=== PATIENT | female | born 1995 | race Caucasian/White ===

== ENCOUNTER 2019-10-19 13:28 | Inpatient (IN) | payer OTHER ==
[2019-10-19] VITALS (11 sets, daily range): BP systolic 128–172; BP diastolic 63–87
[~2019-10-19] VITALS: Ht 165.1 cm; Wt 91.8 kg
[2019-10-19] MEDS ORDERED: TUMS750C5 PO (13:52)
[2019-10-19] MEDS ORDERED: PREN29TA4 PO (13:52)
[2019-10-19 15:20] LABS: BASO % 0.2 % (0.0-1.0); EOS % 0.3 % (0.0-3.0); HEMATOCRIT 37.3 % (36.0-47.0); LYMPH # 1.9 10^3/uL (1.5-5.0); LYMPH % 20.7 % (24.0-44.0); MEAN CORPUSCULAR HEMOGLOBIN 27.6 pg (27.0-33.0); MEAN CORPUSCULAR HGB CONC 32.2 g/dl (32.0-36.5); MEAN CORPUSCULAR VOLUME 85.9 fl (80.0-96.0); MONO # 0.7 10^3/uL (0.0-0.8); MONO % 7.7 % (0.0-5.0); NEUTROPHILS # 6.4 10^3/uL (1.5-8.5); NEUTROPHILS % 70.3 % (36.0-66.0); PLATELET COUNT, AUTOMATED 191 10^3/uL (150-450); RED BLOOD COUNT 4.34 10^6/uL (4.00-5.40); WHITE BLOOD COUNT 9.1 10^3/uL (4.0-10.0)
[2019-10-19 15:46] LABS: ALT/SGPT 30 U/L (12-78); BILIRUBIN,TOTAL 0.3 MG/DL (0.2-1.0); CREATININE FOR GFR 0.66 MG/DL (0.55-1.30); GLOMERULAR FILTRATION RATE > 60.0 (>60); LDH LACTATE DEHYDROGENASE 256 U/L (84-246); URIC ACID 5.4 MG/DL (2.6-6.0)
[2019-10-19] MEDS ORDERED: LACTATED RINGER'S 1000 ML IV STA (15:51)
[2019-10-19] MEDS ORDERED: miSOPROStol 50 MCG 1/2 TAB (S0191) SL ONE (16:00)
[2019-10-19 16:04] LABS: AMORPHOUS SEDIMENT SMALL (NEGATIVE); APPEARANCE, URINE CLOUDY (CLEAR); BACTERIA, URINE AUTO 1+ (NEGATIVE); BILIRUBIN, URINE AUTO NEGATIVE (NEGATIVE); BLOOD, URINE BLOOD NEGATIVE (NEGATIVE); COLOR, URINE YELLOW (YELLOW); GLUCOSE, URINE (UA) AUTO NEGATIVE (NEGATIVE); KETONE, URINE AUTO NEGATIVE (NEGATIVE); LEUKOCYTE ESTERASE, URINE AUTO NEGATIVE (NEGATIVE); MUCUS, URINE SMALL (NEGATIVE); NITRITE, URINE AUTO NEGATIVE (NEGATIVE); PROTEIN, URINE AUTO NEGATIVE (NEGATIVE); RBC, URINE AUTO 4 /HPF (0-3); SPECIFIC GRAVITY URINE AUTO 1.013 (1.002-1.035); SQUAMOUS EPITHELIAL CELL UR AU 0 /HPF (0-6); UROBILINOGEN, URINE AUTO 0.2 mg/dL (0.0-2.0); WBC, URINE AUTO 14 /HPF (0-3)
--- NOTE | 2019-10-19 16:11 | HPEPDOC ---
Obstetrical History & Physical General Date of Admission Oct 19, 2019 at 13:28 History of Present Illness Mitchell is a 24yo at 38+0wks gestation, EDC [id number] by LMP of [id number]. She presents to LND for scheduled IOL d/t CHTN (not on meds). She reports +FM, denies LOF/VB/CTX. She denies BISWAS/visual disturbances/RUQ pain. Her is complicated by CHTN and excessive weight gain. GBS Negative, Blood Type A Positive Chief Complaint: Induction of labor Information Provided By: Patient Age: 24 : 2 Term: 0 Pre-term: 0 Abortions: 1 Livin Care Care: Good Care Number of Visits: 10 Dating Final EDC: Nov 02, 2019 Final EDC for Daily Update: Nov 02, 2019 Final EDC by: LMP Antepartum Course Height (inches): 65.5 Pre- weight (lbs.): 149 Admission Weight (lbs.): 206 Change in Weight (lbs.): 57 Past Medical History Past Obstetrical History : Past Obstetrical History: Multigravida [employer] History: Spontaneous Past Medical History Medical History CHTN Surgical History: Other (Left Knee scope) Family History Significant Family History: No pertinent family hx Social History Marital Status: Family situation: Spouse/partner home Psychosocial History: No pertinent psych hx * Smoker: non-smoker Alcohol: Denies Drugs: denies Imunizations Tdap status: current Influenza Status: current Allergies Coded Allergies: amoxicillin (Verified Allergy, Severe, anaphlyaxis,rash, 10/19/19) Sulfa (Sulfonamide Antibiotics) (Verified Allergy, Intermediate, hives, 10/19/19) Medications Scheduled Calcium Carbonate (Tums) 300 Mg Tab.chew, 1 TAB PO BID Prenat 115/Iron Fum/Folic/Dss ( 19 Tablet) 1 Each Tablet, 1 TAB PO DAILY Physical Examination Physical Examination GENERAL: Alert and oriented times three. BREAST: . ABDOMEN: Gravid and non-tender to touch. FETUS: Is vertex by sterile vaginal examination. HEART RATE: Regular rate LUNGS: Observed nonlabored breathing EXTREMITIES: Nonpitting BLE edema Other physical findings O: BP mild range, 1x severe range (172/81) at admission Afebrile, remaining VSS FHR 170s, moderate variability, + accels, no decels noted; pt received 500mL bolus and FHR returned to 150s CTX: None VE: 08/12/-3, posterior, membranes swept EFW 3200g extrapolated from growth US on 02OCT2019 Vital Signs/I&O Vital Signs Date Time Temp Pulse Resp B/P (MAP) Pulse Ox O2 Delivery O2 Flow Rate FiO2 10/19/19 14:01 98.7 105 18 154/78 (103) 98 Room Air 10/19/19 13:51 108 172/81 (111) Laboratory Tests 10/19/19 13:42: Serology Scanned Report Hepatitis B Testing 10/19/19 14:51: White Blood Count 9.1, Red Blood Count 4.34, Hemoglobin 12.0, Hematocrit 37.3, Mean Corpuscular Volume 85.9, Mean Corpuscular Hemoglobin 27.6, Mean Corpuscular Hemoglobin Concent 32.2, Red Cell Distribution Width 13.2, Platelet Count 191, Immature Granulocyte % (Auto) 0.8, Neutrophils (%) (Auto) 70.3H, Lymphocytes (%) (Auto) 20.7L, Monocytes (%) (Auto) 7.7H, Eosinophils (%) (Auto) 0.3, Basophils (%) (Auto) 0.2, Neutrophils # (Auto) 6.4, Lymphocytes # (Auto) 1.9, Monocytes # (Auto) 0.7, Eosinophils # (Auto) 0.0, Basophils # (Auto) 0.0, Nucleated Red Blood Cells % (auto) 0.0, Creatinine 0.66, Glomerular Filtration Rate > 60.0, Uric Acid 5.4, Total Bilirubin 0.3, Aspartate Amino Transf (AST/SGOT) 31, Alanine Aminotransferase (ALT/SGPT) 30, Lactate Dehydrogenase 256H, Syphilis Serology [Pending] 10/19/19 15:49: Urine Color [Pending], Urine Appearance [Pending], Urine pH [Pending], Urine Specific [place] [Pending], Urine Protein [Pending], Urine Glucose (Auto)(UA) [Pending], Urine Ketones (Auto) [Pending], Urine Blood [Pending], Urine Nitrite [Pending], Urine Bilirubin [Pending], Urine Urobilinogen [Pending], Urine Leukocyte Esterase (Auto) [Pending], Urine Sperm (Auto) [Pending], Urine Random Creatinine [Pending], Urine Random Total Protein [Pending] Laboratory Data 24H LABS Laboratory Tests 2 10/19/19 13:42: Serology Scanned Report Hepatitis B Testing 10/19/19 14:51: Immature Granulocyte % (Auto) 0.8, Neutrophils (%) (Auto) 70.3H, Lymphocytes (%) (Auto) 20.7L, Monocytes (%) (Auto) 7.7H, Eosinophils (%) (Auto) 0.3, Basophils (%) (Auto) 0.2, Neutrophils # (Auto) 6.4, Lymphocytes # (Auto) 1.9, Monocytes # (Auto) 0.7, Eosinophils # (Auto) 0.0, Basophils # (Auto) 0.0, Nucleated Red Blood Cells % (auto) 0.0, Glomerular Filtration Rate > 60.0, Uric Acid 5.4, Total Bilirubin 0.3, Aspartate Amino Transf (AST/SGOT) 31, Alanine Aminotransferase (ALT/SGPT) 30, Lactate Dehydrogenase 256H CBC/BMP Laboratory Tests 10/19/19 14:51 Pertinent Laboratoy Data Blood Type: A+ RBC Antibody Screen: Negative HIV: Negative Hepatitis B: Negative Rapid Plasma Reagin: Nonreactive Rubella: Immune Varicella: Immune Chlamydia/Gonorrhea: Negative Group B Streptococcus: Negative Quad Screen Test: Negative Anatomy Ultrasound Ultrasound Date: Jun 19, 2019 Placenta Location: Anterior Normal Anatomy: Yes Placenta Previa: No Other Ultrasounds Growth US on 02OCT2019 WNL: EFW: 2597g, 45%tile Assessment/Plan Assessment A: 24yo at 38wks, IOL for GHTN, mild range BPs, Category II FHT d/t tachycardia (resolved with hydration, overall reassuring). GBS Negative, A Positive. Plan P: Admit to LND and consent for induction/delivery PIV start, admission and Pre-E labs ordered PO and IV hydration CEFM x2 for 1 hour after cytotec administration, then intermittent monitoring at this time with Category I FHT Start IOL with Buccal Cytotec 50mcg Continue to monitor maternal/ status Close monitoring of BP Consult with OB as indicated Anticipate VIOLETTA PRINCE CNM Oct 19, 2019 15:50
[2019-10-19 16:23] LABS: CREATININE,RANDOM URINE 60.5 MG/DL; TOTAL PROTEIN,RANDOM URINE 31.7 MG/DL (0.0-12.0)
[2019-10-19] MEDS ORDERED: PROMETHAZINE INJ 25 MG/ML VIAL (J2550) IV ONE (17:45)
[2019-10-19] MEDS ORDERED: miSOPROStol 50 MCG 1/2 TAB (S0191) PO SCH (18:00)
--- NOTE | 2019-10-19 19:52 | IPNPDOC ---
Text Note Date of Service The patient was seen on 10/19/19. NOTE Intrapartum Note Mitchell is a 24yo with SIUP at 38wks undergoing IOL for GHTN. On admission she had a urine protein:creatinine of 0.5, so represents evolution to pre-eclampsia withOUT severe features. She received a dose of 50mcg oral cytotec when induction was started about 3.5hr ago. She is comfortable. No BISWAS/vision changes/SOB/CP/RUQ pain. Vitals: mild range bp's, afebrile Cat I FHRT with bl 150, +accels, -decels, mod lauren Shellman: irregular ctx SCE: /-3, soft, anterior. cervical dyson bulb placed with 40cc NS Plan to continue 50mcg PO cytotec q4hr until regular, painful ctx achieved at which point we will start IV pitocin Will closely monitor and await dyson bulb falling out Safe to proceed Dr. Brittni Richard MD VS,Jessie, I+O VSJessie I+O Laboratory Tests 10/19/19 14:51 Vital Signs Date Time Temp Pulse Resp B/P (MAP) Pulse Ox O2 Delivery O2 Flow Rate FiO2 10/19/19 18:41 98.5 87 18 133/73 (93) 10/19/19 14:01 98 Room Air Brittni Richard MD Oct 19, 2019 19:52
[2019-10-19] MEDS: miSOPROStol 50 MCG 1/2 TAB (S0191) PO SCH (20:05)
[2019-10-19] MEDS: BUTORPHANOL 2 MG/ML INJ (J0595) IV PRN (22:09)
[2019-10-20] VITALS (33 sets, daily range): BP systolic 87–176; BP diastolic 37–90
[2019-10-20] MEDS ORDERED: CALCIUM CARBONATE 500 MG CHEW U/D PO ONE (00:30)
[2019-10-20] MEDS: miSOPROStol 50 MCG 1/2 TAB (S0191) PO SCH (00:35)
[2019-10-20] MEDS: BUTORPHANOL 2 MG/ML INJ (J0595) IV PRN (04:47)
[2019-10-20 06:48] LABS: HEMATOCRIT 38.2 % (36.0-47.0); HEMOGLOBIN 12.4 g/dl (12.0-15.5); MEAN CORPUSCULAR HEMOGLOBIN 27.9 pg (27.0-33.0); MEAN CORPUSCULAR HGB CONC 32.5 g/dl (32.0-36.5); PLATELET COUNT, AUTOMATED 172 10^3/uL (150-450); RED BLOOD COUNT 4.44 10^6/uL (4.00-5.40); WHITE BLOOD COUNT 14.7 10^3/uL (4.0-10.0)
--- NOTE | 2019-10-20 07:21 | IPNPDOC ---
Text Note Date of Service The patient was seen on 10/20/19. NOTE Intrapartum Note Pt is doing well, received stadol overnight for pain. Received regular doses of PO cytotec. her plan for now is no epidural. she is not currently uncomfortable with ctx. dyson bulb fell out around 0400. Vitals: normotensive, afebrile Cat II FHRT currently with no accels, min-mod lauren, no decels Dauphin: irregular ctx SCE: /-2, AROM performed with clear fluid noted Will plan to observe closely. Hopefully AROM will kick her into active labor. If she does not develop regular painful ctx in the next hour or so, would recommend starting pitocin Safe to proceed Dr. Brittni Richard MD VS,Jessie, I+O VS, Jessie, I+O Laboratory Tests 10/19/19 14:51 10/20/19 06:40 Vital Signs Date Time Temp Pulse Resp B/P (MAP) Pulse Ox O2 Delivery O2 Flow Rate FiO2 10/20/19 04:47 17 10/20/19 04:44 80 135/71 (92) 10/20/19 04:35 98.8 10/19/19 14:01 98 Room Air I&O- Last 24 Hours up to 6 AM 10/20/19 06:00 Intake Total 500 ml Output Total 300 ml Balance 200 ml Brittni Richard MD Oct 20, 2019 07:21
[2019-10-20] MEDS ORDERED: OXYTOCIN DRIP 30 UNITS in IV 1 EA IV SCH ×2 (08:00→13:04)
[2019-10-20] MEDS ORDERED: LR 1,000 ML IV ONE ×2 (08:15→11:00)
[2019-10-20] MEDS ORDERED: FENTANYL 2MCG/ML ROPIVACAINE 0.2% IN 0.9% NACL 100ML IVBAG As Ordered ONE (09:19)
[2019-10-20] MEDS ORDERED: FENTANYL/ROPIVACAINE/NACL BAG 100 ML EPIDURAL SCH (10:15)
[2019-10-20] MEDS ORDERED: ePHEDrine SULFATE 25 MG/5 ML(5MG/ML) SYRINGE IV PRN (10:15)
[2019-10-20] MEDS ORDERED: NALOXONE INJ 0.4 MG/1 ML VIAL (J2310) IV PRN (10:15)
[2019-10-20] MEDS ORDERED: diphenhydrAMINE INJ 50MG/ML VIAL (J1200) IV PRN (10:15)
[2019-10-20] MEDS ORDERED: REFRIGERATOR IV KEYS XX PRN (10:15)
[2019-10-20] MEDS ORDERED: ONDANSETRON 4MG/2ML VIAL (J2405) IV PRN ×2 (10:15→13:15)
[2019-10-20] MEDS ORDERED: LACTATED RINGER'S 1000 ML IV PRN (10:15)
[2019-10-20] MEDS ORDERED: EPIDURAL COMMENT XX SCH (10:15)
[2019-10-20] MEDS ORDERED: EPIDURAL/PCA KEYS XX PRN (10:15)
[2019-10-20] MEDS ORDERED: LR 1,000 ML IV SCH (11:15)
--- NOTE | 2019-10-20 13:14 | DNPDOC ---
[facility] Delivery Note Delivery Note DATE OF DELIVERY: PREDELIVERY DIAGNOSIS: 38-1/7 weeks' gestation and labor. POST DELIVERY DIAGNOSIS: Delivered. PROCEDURE: Spontaneous vaginal delivery. CHUCK SPLITTER: Dr. Virgen ANESTHESIA: Epidural. ESTIMATED BLOOD LOSS: 250 mL. FINDINGS: 6 pound 7 ounce 2920gm Girl infant, Score 9/9, nuchal cord times 0. DELIVERY SUMMARY: Patient is a 24-year-old 2 now para 1 who was admitted to labor and delivery for induction of labor for 8hours. Patient AROM clear around 0644. Baby girl compound left hand and head was delivered without difficulty over intact perineum in OA position at 1249. The nose and mouth were bulb suctioned. No nuchal cord was noted. The shoulders were then delivered without difficulty. Infant was handed on mother's belly. Cord was then clamped x2 and cut after pulsation. Pitocin bolus was started. Perineum and vagina was inspected and found to have a 1st degree laceration. This was repaired with 3-0 chromic. The placenta was then delivered at 1252 spontaneously intact. Cord had a 3 vessel cord. EBL was 250mL. The vagina and perineum were reinspected and no further lacerations were found and hemostasis was good. Fu ndus was firm. Patient tolerated delivery well. Gina Virgen MD Oct 20, 2019 13:14
[2019-10-20] MEDS ORDERED: RHOGAM 300 MCG (1500 IU) INJ (J2790) IM SCH (13:15)
[2019-10-20] MEDS ORDERED: MOM 30ML SUSPENSION UDC PO PRN (13:15)
[2019-10-20] MEDS ORDERED: ACETAMINOPHEN 500 MG TAB PO PRN (13:15)
[2019-10-20] MEDS ORDERED: diphenhydrAMINE 25 MG CAP PO PRN (13:15)
[2019-10-20] MEDS ORDERED: CALCIUM CARBONATE 500 MG CHEW U/D PO PRN (13:15)
[2019-10-20] MEDS ORDERED: METHYLERGONOVINE MALEATE 0.2 MG TAB PO PRN (13:15)
[2019-10-20] MEDS ORDERED: DIBUCAINE 1% OINTMENT 30GM TOP PRN (13:15)
[2019-10-20] MEDS ORDERED: MEASLES,MUMPS,RUBELLA VACCINE INJ (MMR-II) (90707) SC SCH (13:15)
[2019-10-20] MEDS ORDERED: SIMETHICONE 80 MG CHEW TAB PO PRN (13:15)
[2019-10-20] MEDS ORDERED: ANUSOL HC CREAM 30GM TOP PRN (13:15)
[2019-10-20] MEDS: DOCUSATE SODIUM 100 MG CAP PO SCH (20:25)
[2019-10-21 02:00] VITALS: BP 135/76
[2019-10-21 06:00] VITALS: BP 132/74
[2019-10-21 06:07] LABS: HEMATOCRIT 32.8 % (36.0-47.0); MEAN CORPUSCULAR HEMOGLOBIN 27.2 pg (27.0-33.0); MEAN CORPUSCULAR HGB CONC 31.4 g/dl (32.0-36.5); MEAN CORPUSCULAR VOLUME 86.8 fl (80.0-96.0); PLATELET COUNT, AUTOMATED 140 10^3/uL (150-450); RED BLOOD COUNT 3.78 10^6/uL (4.00-5.40); WHITE BLOOD COUNT 12.9 10^3/uL (4.0-10.0)
[2019-10-21 06:19] LABS: HEMOGLOBIN 10.3 g/dl (12.0-15.5)
[2019-10-21] MEDS: PRENATAL VITAMINS CHEWABLE TABLET PO SCH (08:40)
[2019-10-21] MEDS: DOCUSATE SODIUM 100 MG CAP PO SCH ×2 (08:40→21:37)
--- NOTE | 2019-10-21 08:56 | IPNPDOC ---
Progress Note Date of Service: Oct 21, 2019 Day#: 1 Progress Note SUBJECT: Patient is a 24-year-old 1 now Para 1 status post uncomplicated spontaneous vaginal delivery with post 1st degree laceration and repair, doing well day # 1. She has been ambulating, voiding spontaneously without issue and tolerating regular diet. Breast feeding without issue. Reports lochia is like a normal period. Patient is ambulating well. Reports some cramping with . Denies any pain. OBJECTIVE: VITAL SIGNS: Within normal limits, afebrile. GENERAL: No acute distress HEENT: Mucous membranes are moist BREAST: Nontender, no erythema CARDIOVASCULAR: RRR RESPIRATORY: Bilaterally clear ABDOMINAL EXAMINATION: Soft, appropriate tenderness, nondistended, fundus -2 PERINEUM: Intact, minimal lochia EXTREMITIES: no edema, nontender ASSESSMENT: Patient is a 24-year-old 1 now Para 1 status post uncomplicated spontaneous vaginal delivery with post 1st degree laceration and repair, doing well day # 1. Vitals within normal limits, afebrile, hemodynamically stable with no evidence of infection. PLAN: 1. Continue care. 2. Tylenol for pain. 3. Encourage breast feeding and ambulation. VS, I&O, 24H, Fishbone Vital Signs/I&O Vital Signs Date Time Temp Pulse Resp B/P (MAP) Pulse Ox O2 Delivery O2 Flow Rate FiO2 10/20/19 15:05 99.3 104 18 140/77 (98) 10/19/19 14:01 98 Room Air I&O- Last 24 Hours up to 6 AM 10/20/19 05:59 Intake Total 500 ml Output Total 300 ml Balance 200 ml Laboratory Data 24H LABS Laboratory Tests 2 10/20/19 06:40: Nucleated Red Blood Cells % (auto) 0.0 CBC/BMP Laboratory Tests 10/20/19 06:40 Gina Virgen MD Oct 20, 2019 16:51
[2019-10-21 10:13] VITALS: BP 123/66
[2019-10-21 14:25] VITALS: BP 143/80
[2019-10-21 17:50] VITALS: BP 132/73
[2019-10-21 22:08] VITALS: BP 138/80
[2019-10-22 02:00] VITALS: BP 121/69
[2019-10-22 05:34] LABS: HEMATOCRIT 33.7 % (36.0-47.0); HEMOGLOBIN 10.9 g/dl (12.0-15.5); MEAN CORPUSCULAR HEMOGLOBIN 27.7 pg (27.0-33.0); MEAN CORPUSCULAR HGB CONC 32.3 g/dl (32.0-36.5); MEAN CORPUSCULAR VOLUME 85.5 fl (80.0-96.0); PLATELET COUNT, AUTOMATED 147 10^3/uL (150-450); RED BLOOD COUNT 3.94 10^6/uL (4.00-5.40); WHITE BLOOD COUNT 11.5 10^3/uL (4.0-10.0)
[2019-10-22 05:54] VITALS: BP 128/61
[2019-10-22] MEDS: DOCUSATE SODIUM 100 MG CAP PO SCH (07:56)
[2019-10-22] MEDS: PRENATAL VITAMINS CHEWABLE TABLET PO SCH (07:56)
[2019-10-22] MEDS ORDERED: PROC1CRE5 TOP (09:43)
[2019-10-22] MEDS ORDERED: DIBU10OI TOP (09:43)
[2019-10-22] MEDS ORDERED: DOCU100C16 PO (09:43)
--- NOTE | 2019-10-22 14:18 | DSES ---
DATE OF ADMISSION: 10/19/2019 DATE OF DISCHARGE: 10/22/2019 24-year-old 2 now para 1 admitted for induction of labor at 38 weeks of gestation for chronic hypertension. With epidural in place, spontaneous delivery of a female , 6 pounds 7 ounces, scores of 9 and 9 at 1 and 5 minutes, respectively. She had an epidural in place. She had a first-degree tear repaired in the usual fashion. On her second day, we discussed phlebitis, cystitis, mastitis, endometritis, cellulitis, diet, exercise, pain management, perineal/breast/wound care. Medications were dispensed at [facility], she picked them up several days before induction of labor. Admitting hemoglobin was 12.0, hematocrit 37.3 and platelets were 191. Discharge hemoglobin 10.9, hematocrit 33.7 and platelets were 147. Blood pressure on discharge was 128/61, respirations are 17, pulse 83, temperature 99.1. The rest of the examination unremarkable. Normocephalic, atraumatic. Neck with full range of motion. Pupils equal and reactive to light. Distal pulses symmetric. No evidence of DVT, PE or superficial phlebitis. Chest is clear bilaterally to the bases. No wheezes or rhonchi. No CVA tenderness. Abdomen is soft. Uterus 2 below. Lochia is moderate. Four quadrant bowel sounds are noted. Perineum is intact. First degree tear is healing well. No rashes, lesions or pruritus. No arthralgia, myalgia. No complaint of joint pain. No complaint cough, wheeze, shortness of breath or dyspnea on exertion. No nausea, vomiting, diarrhea or constipation. She is presently breast-feeding and doing well. Medications were dispensed at [facility] and picked up. The patient has a 6 weeks checkup at [facility]. Discharged improved.
== END 2019-10-22 12:55 | disposition home or self-care (01) | DRG 807 ==
LOC: M LDI 13:28 → M OBS 10-20 14:59
PROVIDERS: ADMIT Registered Nurse Maternal Newborn; ATTEND Obstetrics & Gynecology
PROC: 3E0P7GC Introduction of Other Therapeutic Substance into Female Reproductive, Via Natural or Artificial Opening (ICD-10-PCS; 2019-10-19)
PROC: 10E0XZZ Delivery of Products of Conception, External Approach (ICD-10-PCS; principal; 2019-10-20)
PROC: 0HQ9XZZ Repair Perineum Skin, External Approach (ICD-10-PCS; 2019-10-20)
PROC: 10907ZC Drainage of Amniotic Fluid, Therapeutic from Products of Conception, Via Natural or Artificial Opening (ICD-10-PCS; 2019-10-20)
DX: O11.4 Pre-existing hypertension with pre-eclampsia, complicating childbirth (principal); Z37.0 Single live birth; Z3A.38 38 weeks gestation of pregnancy; O10.02 Pre-existing essential hypertension complicating childbirth; O32.6XX0 Maternal care for compound presentation, not applicable or unspecified; O70.0 First degree perineal laceration during delivery; Z88.0 Allergy status to penicillin; Z88.2 Allergy status to sulfonamides